=== PATIENT | female | born 1935 | race Caucasian/White ===

== ENCOUNTER 2025-04-17 19:17 | Inpatient (IN) | payer OTHER, MEDICAID ==
[~2025-04-17] VITALS: Ht 152.4 cm; Wt 58.0 kg
[2025-04-17 19:45] VITALS: RESP 25; O2SAT 95
--- NOTE | 2025-04-17 20:06 | DVH ---
CHEST RADIOGRAPH Indication: Flu Sx Technique: Single frontal view of the chest was obtained COMPARISON: None FINDINGS: Lines and Tubes: None Lungs: Clear Pleura: No effusion. No pneumothorax. Cardiomediastinal contours: Unremarkable Bones: Unremarkable IMPRESSION: 1. No acute disease.
[2025-04-17 20:12] LABS: Hematocrit 31.9 % (36.0-46.0); Hemoglobin 10.2 g/dL (12.2-16.2); Mean Corpuscular Hemoglobin 28.6 pg (28.0-32.0); Mean Corpuscular Volume 89.8 fL (80.0-100.0); Nucleated Red Blood Cells % 0.0 %
[2025-04-17 20:19] LABS: Chloride 105 mmol/L (98-107); Potassium 4.7 mmol/L (3.5-5.1); Sodium 145 mmol/L (136-145)
[2025-04-17 20:20] LABS: Anion Gap 8 (5-15); Calcium 9.4 mg/dL (8.7-10.4)
[2025-04-17 20:25] LABS: BUN/Creatinine Ratio 23.2 (10.0-20.0)
[2025-04-17 20:27] LABS: Blood Urea Nitrogen 32 mg/dL (9-23); Carbon Dioxide 32 mmol/L (20-31); Glucose 126 mg/dL (74-106)
[2025-04-17 20:30] LABS: COVID19 ANTIGEN SOFIA FIA NEGATIVE (NEGATIVE)
--- NOTE | 2025-04-17 20:36 | ED.PDOC ---
SOB-HPI HPI Comments 89-year-old female who came to ER via EMS for flu-like symptoms. Patient picked up at [facility]. Patient states she feels that she got contaminated by her roommate. She has started having productive cough and shortness of breath, progressively worsening, episodes of dizziness, lightheadedness, and has a ground level fall. Denies any head trauma or loss of consciousness. REVIEW OF SYSTEMS: General: No fever, no chills, or fatigue HEENT: No sore throat, no earache, no congestion, no neck pain. Cardiac: No chest pain. No palpitations. Lungs: (+) shortness of breath, (+) cough. GI: No nausea, no vomiting, no diarrhea, no constipation, no abdominal pain : No dysuria, frequency, or urgency. No hematuria. Musculoskeletal: No joint pain , no joint swelling, no extremity edema. Skin: No rash, no itching. Neuro: No headache, (+) dizziness, no weakness EXAM: General: Awake, alert and oriented. No acute distress. Skin: Skin in warm, dry and intact. Appropriate color for ethnicity. HEENT: The head is normocephalic and atraumatic. Conjunctivae are clear without exudates or hemorrhage. Sclera is non-icteric. EOM are intact. No signs of nystagmus. Eyelids are normal in appearance without swelling or lesions. Oral mucosa is pink and moist Neck: The neck is supple with normal range of motion. No JVD. Cardiac: Heart rate and rhythm are normal. No murmurs, gallops, or rubs are auscultated. Respiratory: No signs of respiratory distress. Lung sounds are clear in all lobes bilaterally without rales, rhonchi, or wheezes. Abdominal: Abdomen is soft, non-tender without distention. Bowel sounds are present and normoactive in all four quadrants. Extremities: Upper and lower extremities are atraumatic in appearance without deformity or edema. Neurological: The patient is awake, alert and oriented to person, place, and time with normal speech. Speech is clear. There is no facial asymmetry. Psychiatric: Appropriate mood and affect. Good judgement and insight Chief Complaint: Flu like Time Seen by MD: 20:36 Reviewed notes: Instructor Adjunct Surgical Technician Notes Information Source: Patient Mode of Arrival: EMS Past Medical History PAST MEDICAL HISTORY: COPD Surgical History: Denies all surgeries TURKISH RUBBER History: Denies all TURKISH RUBBER Hx Family History Family History: Reviewed,noncontributory to illness Social History Smoker: Cigarettes Alcohol: Denies ETOH Use Drugs: Denies Drug Use Lives In: Assisted Care Was a procedure done? Was a procedure done?: No Differential Dx Differential Diagnosis: Asthma, Bronchitis, CHF, COPD, Pneumonia, Respiratory Distress, URI X-Ray, Labs, Meds, VS Vital Signs Date Time Temp Pulse Resp B/P (MAP) Pulse Ox O2 Delivery O2 Flow Rate FiO2 04/17/25 20:47 20 95 Nasal Cannula* 3 32 04/17/25 20:00 85 16 99/75 (83) 96 04/17/25 19:45 97.9 89 15 125/68 (87) 90 97.9 04/17/25 19:45 25 95 Nasal Cannula* 2 28 04/17/25 19:22 98.0 82 20 106/66 94 98.0 Lab Test 04/17/25 20:49 04/17/25 19:54 04/17/25 19:52 Range/Units Troponin I High Sensitivity 25 28 </=34 ng/L Influenza Type A Antigen Negative Negative Influenza Type B Antigen Negative Negative SARS-CoV-2 Antigen (Rapid) Negative NEGATIVE White Blood Count 17.5 H 4.4-10.8 10^3/uL Red Blood Count 3.55 L 4.0-5.20 10^6/uL Hemoglobin 10.2 L 12.2-16.2 g/dL Hematocrit 31.9 L 36.0-46.0 % Mean Corpuscular Volume 89.8 80.0-100.0 fL Mean Corpuscular Hemoglobin 28.6 28.0-32.0 pg Mean Corpuscular Hemoglobin Concent 31.8 L 32.0-36.0 g/dL Red Cell Distribution Width 15.9 H 11.8-14.3 % Platelet Count 218 140-450 10^3/uL Mean Platelet Volume 8.1 6.9-10.8 fL Neutrophils (%) (Auto) 87.2 H 37.0-80.0 % Lymphocytes (%) (Auto) 5.7 L 10.0-50.0 % Monocytes (%) (Auto) 6.6 0.0-12.0 % Eosinophils (%) (Auto) 0.4 0.0-7.0 % Basophils (%) (Auto) 0.1 0.0-2.0 % Neutrophils # (Auto) 15.2 H 1.6-8.6 10 ^3/uL Lymphocytes # (Auto) 1.0 0.4-5.4 10 ^3/uL Monocytes # (Auto) 1.1 0-1.3 10 ^3/uL Eosinophils # (Auto) 0.1 0-0.8 10 ^3/uL Basophils # (Auto) 0 0-0.2 10 ^3/uL Nucleated Red Blood Cells 0.0 % Sodium Level 145 136-145 mmol/L Potassium Level 4.7 3.5-5.1 mmol/L Chloride Level 105 98-107 mmol/L Carbon Dioxide Level 32 H 20-31 mmol/L Anion Gap 8 5-15 Blood Urea Nitrogen 32 H 9-23 mg/dL Creatinine 1.38 H 0.550-1.02 mg/dL Glomerular Filtration Rate Calc 37 >90 mL/min BUN/Creatinine Ratio 23.2 H 10.0-20.0 Serum Glucose 126 H 74-106 mg/dL Calcium Level 9.4 8.7-10.4 mg/dL Current Medications Medications (Trade) Dose Ordered Sig/Bhumika Route Start Time Stop Time Status Last Admin Sodium Chloride 1,000 ml @ 1,000 mls/hr Q1H ONCE IV 04/17/25 20:45 04/17/25 21:44 DC 04/17/25 21:42 Albuterol (Ventolin Medneb) 2.5 mg ONCE ONCE NEB 04/17/25 20:45 04/17/25 20:46 DC 04/17/25 20:46 Ipratropium Kim (Atrovent Medneb) 0.5 mg ONCE ONCE NEB 04/17/25 20:45 04/17/25 20:46 DC 04/17/25 20:46 CHEST RADIOGRAPH Indication: Flu Sx Technique: Single frontal view of the chest was obtained COMPARISON: None FINDINGS: Lines and Tubes: None Lungs: Clear Pleura: No effusion. No pneumothorax. Cardiomediastinal contours: Unremarkable Bones: Unremarkable IMPRESSION: 1. No acute disease. Time of 1ST Reevaluation: 20:32 Reevaluation 1ST: Unchanged Patient Education/Counseling: Need For Follow Up Family Education/Counseling: No Family Present SEPSIS Sepsis Screen Date sepsis recognized/suspect: Apr 17, 2025 Time Sepsis recognized/suspect: 1914 Recent Procedure: No On Antibiotic Therapy: No Respiratory Rate >20: No Heart Rate >90: No Temp<36 C (96.8 F) or >38.3 C: No SBP <90 or MAP <65 mmHG: No New Acute Mental Status Change: No Is the patient on CPAP, BIPAP,: No Physician Orders Chest Xray 1 View (04/17/25 19:39) Titrate Oxygen (04/17/25 19:39) Oxygen (04/17/25 ) Continous Pulse Oximetry (04/17/25 19:39) Saline Lock (04/17/25 19:39) Electrical Software Engineer (04/17/25 ) Electrocardigram (04/17/25 20:16) Electrocardigram (04/17/25 21:16) Electrocardigram (04/17/25 23:16) Orthostatic Vital Signs (04/17/25 ) Vital Signs Date Time Temp Pulse Resp B/P (MAP) Pulse Ox O2 Delivery O2 Flow Rate FiO2 04/17/25 20:47 20 95 Nasal Cannula* 3 32 04/17/25 20:00 85 16 99/75 (83) 96 04/17/25 19:45 97.9 89 15 125/68 (87) 90 97.9 04/17/25 19:45 25 95 Nasal Cannula* 2 28 04/17/25 19:22 98.0 82 20 106/66 94 98.0 Laboratory Tests Test 04/17/25 19:52 White Blood Count 17.5 10^3/uL (4.4-10.8) H Medications Medications Dose Ordered Sig/Bhumika Route Start Time Stop Time Status Last Admin Dose Admin Albuterol 2.5 mg ONCE ONCE NEB 04/17/25 20:45 04/17/25 20:46 DC 04/17/25 20:46 Ipratropium Kim 0.5 mg ONCE ONCE NEB 04/17/25 20:45 04/17/25 20:46 DC 04/17/25 20:46 Sodium Chloride 1,000 ml @ 1,000 mls/hr Q1H ONCE IV 04/17/25 20:45 04/17/25 21:44 DC 04/17/25 21:42 Departure 1 Departure Time of Disposition: 00:34 Impression: Primary Impression: Syncope Disposition: ADMITTED INPATIENT Condition: Stable Comments Patient is stabilized in the ED Patient admitted to hospitalist service for further treatment, evaluation and monitoring. Critical Care Note Critical Care Time?: Yes (35 min-critical care time only) Critical care comment: Shortness of breath Stability Stability form required: No Heart Score Heart Score: Heart Score Response (Comments) Value History N/A 0 EKG N/A 0 Age N/A 0 Risk Factors N/A 0 Troponin N/A 0 Total 0 I personally scribed for MIGUEL HARDEN MD ([email or web address]) on 04/17/25 at 20:36. Electronically submitted by Henry Amaya ([email or web address]). I personally scribed for MIGUEL HARDEN MD ([email or web address]) on 04/17/25 at 21:34. Electronically submitted by Henry Amaya ([email or web address]). MIGUEL HARDEN MD Apr 17, 2025 20:36
[2025-04-17] MEDS: ALBUTEROL SULF 2.5 MG/0.5ML(0.5%) NEB SOLN NEB ONE (20:46)
[2025-04-17] MEDS: IPRATROPIUM BROM 0.5 MG/2.5ML INH SOL NEB ONE (20:46)
--- NOTE | 2025-04-17 21:25 | DVHHP2 ---
History of Present Illness HPI 89-year-old female who came to ER via EMS for flu-like symptoms. Patient picked up at [facility]. Patient states she feels that she got contaminated by her roommate. She has started having productive cough and shortness of breath, progressively worsening, episodes of dizziness, lightheadedness, and has a ground level fall. Denies any head trauma or loss of consciousness. Home Meds Active Scripts Nifedipine (Nifedipine Er) 30 Mg Tab, 60 MG PO DAILY for 30 Days, #60 TAB 6 Refills Prov:DELIO MEEHAN DO 04/20/25 Review of Systems Constitutional: Fever Pulmonary/Respiratory: Dyspnea Cardiovascular: Chest Pain Gastrointestinal: Nausea, Vomiting H&P Exam Vital Signs Vital Signs Date Time Temp Pulse Resp B/P (MAP) Pulse Ox O2 Delivery O2 Flow Rate FiO2 04/17/25 20:47 20 95 Nasal Cannula* 3 32 04/17/25 19:22 98.0 82 106/66 98.0 General Appeara: Well developed, Well nourished Head Exam: Normal inspection Neck Exam: Normal inspection Pulmonary/Respiratory: Normal inspection Cardiovascular/Chest: Normal inspection SEPSIS Sepsis Screen Date sepsis recognized/suspect: Apr 17, 2025 Time Sepsis recognized/suspect: 1914 Recent Procedure: No On Antibiotic Therapy: No Respiratory Rate >20: No Heart Rate >90: No Temp<36 C (96.8 F) or >38.3 C: No SBP <90 or MAP <65 mmHG: No New Acute Mental Status Change: No Is the patient on CPAP, BIPAP,: No Physician Orders Chest Xray 1 View (04/17/25 19:39) Titrate Oxygen (04/17/25 19:39) Oxygen (04/17/25 ) Continous Pulse Oximetry (04/17/25 19:39) Saline Lock (04/17/25 19:39) Office Clin Asst (04/17/25 ) Electrocardigram (04/17/25 20:16) Troponin-I Hs (04/17/25 23:16) Electrocardigram (04/17/25 21:16) Electrocardigram (04/17/25 23:16) Sodium Chloride 0.9% (04/17/25 20:45) Orthostatic Vital Signs (04/17/25 ) Admit (04/17/25 21:22) Code Status (04/17/25 21:22) Acetaminophen Tablet (Tylenol Tablet) (04/17/25 21:30) Hydrocodone-Acet 5/325mg Tab (Beals /32 (04/17/25 21:30) Enoxaparin Sodium (Lovenox) (04/18/25 10:00) Complete Blood Count (04/18/25 04:00) Comprehensive Metabolic Panel (04/18/25 04:00) Condition: Serious (04/17/25 21:22) Morphine Sulfate Injection (04/17/25 21:30) Lovenox 40mg (04/17/25 21:30) Nitroglycerin Sublingual (Ntrostat Subli (04/17/25 21:30) Morphine Sulfate Injection (04/17/25 21:30) Stat Ekg For Chest Pain (04/17/25 21:22) Notify Md Of Changes From Base (04/17/25 21:22) Spool Tender For 24 Hours (04/17/25 21:22) Emergency Dysrhythmia Protocol (04/17/25 21:22) Rhythm Strips Once Every Shift (04/17/25 21:22) Oxygen By Nasal Cannula (04/17/25 21:22) Vital Signs Date Time Temp Pulse Resp B/P (MAP) Pulse Ox O2 Delivery O2 Flow Rate FiO2 04/17/25 20:47 20 95 Nasal Cannula* 3 32 04/17/25 19:22 98.0 82 20 106/66 94 98.0 Laboratory Tests Test 04/17/25 19:52 White Blood Count 17.5 10^3/uL (4.4-10.8) H Medications Medications Dose Ordered Sig/Bhumika Route Start Time Stop Time Status Last Admin Dose Admin Albuterol 2.5 mg ONCE ONCE NEB 04/17/25 20:45 04/17/25 20:46 DC 04/17/25 20:46 2.5 MG Ipratropium [place] 0.5 mg ONCE ONCE NEB 04/17/25 20:45 04/17/25 20:46 DC 04/17/25 20:46 0.5 MG Labs/Xrays Labs Test 04/17/25 20:49 04/17/25 19:54 04/17/25 19:52 Range/Units Troponin I High Sensitivity 25 </=34 ng/L Influenza Type A Antigen Negative Negative Influenza Type B Antigen Negative Negative SARS-CoV-2 Antigen (Rapid) Negative NEGATIVE White Blood Count 17.5 H 4.4-10.8 10^3/uL Red Blood Count 3.55 L 4.0-5.20 10^6/uL Hemoglobin 10.2 L 12.2-16.2 g/dL Hematocrit 31.9 L 36.0-46.0 % Mean Corpuscular Volume 89.8 80.0-100.0 fL Mean Corpuscular Hemoglobin 28.6 28.0-32.0 pg Mean Corpuscular Hemoglobin Concent 31.8 L 32.0-36.0 g/dL Red Cell Distribution Width 15.9 H 11.8-14.3 % Platelet Count 218 140-450 10^3/uL Mean Platelet Volume 8.1 6.9-10.8 fL Neutrophils (%) (Auto) 87.2 H 37.0-80.0 % Lymphocytes (%) (Auto) 5.7 L 10.0-50.0 % Monocytes (%) (Auto) 6.6 0.0-12.0 % Eosinophils (%) (Auto) 0.4 0.0-7.0 % Basophils (%) (Auto) 0.1 0.0-2.0 % Neutrophils # (Auto) 15.2 H 1.6-8.6 10 ^3/uL Lymphocytes # (Auto) 1.0 0.4-5.4 10 ^3/uL Monocytes # (Auto) 1.1 0-1.3 10 ^3/uL Eosinophils # (Auto) 0.1 0-0.8 10 ^3/uL Basophils # (Auto) 0 0-0.2 10 ^3/uL Nucleated Red Blood Cells 0.0 % Sodium Level 145 136-145 mmol/L Potassium Level 4.7 3.5-5.1 mmol/L Chloride Level 105 98-107 mmol/L Carbon Dioxide Level 32 H 20-31 mmol/L Anion Gap 8 5-15 Blood Urea Nitrogen 32 H 9-23 mg/dL Creatinine 1.38 H 0.550-1.02 mg/dL Glomerular Filtration Rate Calc 37 >90 mL/min BUN/Creatinine Ratio 23.2 H 10.0-20.0 Serum Glucose 126 H 74-106 mg/dL Calcium Level 9.4 8.7-10.4 mg/dL Assessment/Plan Primary Diagnosis pneumonia, bacterial (Gram positive/Gram negative) Syncope coughing KAREL/ATN chronic anemia admitted to med/surg consult to nephro started in iv abx Plan discussed with: Patient DELIO MEEHAN DO Apr 17, 2025 21:25
[2025-04-17] MEDS ORDERED: NITROGLYCERIN 0.4 MG SL TAB SL PRN (21:30)
[2025-04-17] MEDS ORDERED: MORPHINE SULFATE INJ 2 MG/ml SYRG IV PRN ×2 (21:30)
[2025-04-17] MEDS ORDERED: ENOXAPARIN SOD 40 MG/0.4 ML SYRINGE SC SCH (21:30)
[2025-04-17] MEDS ORDERED: ACETAMINOPHEN 325 MG TAB PO PRN (21:30)
[2025-04-17] MEDS: SODIUM CHLORIDE 0.9% 1,000 ML IV ONE (21:42)
[2025-04-17] MEDS: ENOXAPARIN SOD 30 MG/0.3 ML SYRINGE SC ONE (22:29)
[2025-04-17] MEDS: AZITHROMYCIN 500MG/ 250ML 250 ML IV ONE (22:51)
[2025-04-18 04:22] LABS: Hematocrit 29.5 % (36.0-46.0); Nucleated Red Blood Cells % 0.0 %
[2025-04-18 04:23] LABS: Hemoglobin 8.9 g/dL (12.2-16.2); Mean Corpuscular Hemoglobin 28.9 pg (28.0-32.0); Mean Corpuscular Volume 95.9 fL (80.0-100.0)
[2025-04-18 04:31] LABS: Urine Protein, UAD Negative (Negative)
[2025-04-18 04:41] LABS: Alanine Aminotransferase 16 U/L (7-40); Albumin 3.6 g/dL (3.2-4.8); Alkaline Phosphatase 72 U/L (46-116); Anion Gap 10 (5-15); BUN/Creatinine Ratio 16.2 (10.0-20.0); Blood Urea Nitrogen 18 mg/dL (9-23); Carbon Dioxide 26 mmol/L (20-31); Glucose 100 mg/dL (74-106); Potassium 4.2 mmol/L (3.5-5.1); Sodium 143 mmol/L (136-145); Total Protein 6.4 g/dL (5.7-8.2)
[2025-04-18 04:45] LABS: Bilirubin, Total 0.2 mg/dL (0.2-1.0); Calcium 8.6 mg/dL (8.7-10.4); Chloride 107 mmol/L (98-107)
[2025-04-18 09:00] VITALS: BP 152/62; PULSE 80; RESP 18; TEMP 97.5; O2SAT 99
[2025-04-18] MEDS: ENOXAPARIN SOD 30 MG/0.3 ML SYRINGE SC SCH (10:21)
[2025-04-18 13:20] VITALS: PULSE 86; RESP 18; O2SAT 99
[2025-04-18 13:30] VITALS: BP 153/81; PULSE 86; RESP 18; TEMP 98.2; O2SAT 99
[2025-04-18 17:01] VITALS: BP 152/81; PULSE 81; RESP 20; TEMP 98.1; O2SAT 98
--- NOTE | 2025-04-18 17:06 | DVHINCON2 ---
Date of service: Apr 18, 2025 Referring Physician Tho Massey MD Reason for Consultation Acute kidney injury History of Present Illness Chichi Barahona is a 89 year old F with a Past Medical History pertinent for COPD who presented to the hospital from [facility] with complaint of flu-like symptoms. Patient states she believes that she got contaminated by her roommate. She started having productive cough and shortness of breath, progressively worsening, episodes of dizziness, lightheadedness, and has a ground level fall. Denies any head trauma or loss of consciousness. Denies any chest pain, fever, chills, N/V/D or abdominal pain. During ED course, Chest x-ray reported no acute disease. Labs were remarkable for WBC 17.5. Hgb 10.2. Creatinine 1.38 with BUN of 32. eGFR 37. K wnl. Currently stable on 1L NC. Patient is admitted under the care of Dr. Massey. I was asked to consult for management of KAREL. Allergies: Coded Allergies: Sulfamethoxazole w/Trimethoprim (Verified Allergy, Unknown, 04/17/25) Current Medications Current Medications Medications (Trade) Dose Ordered Sig/Bhumika Route PRN Reason Start Time Stop Time Status Last Admin Acetaminophen (Tylenol Tablet) 325 mg Q4HP PRN PO MILD PAIN (1-3 PAIN SCALE) 04/17/25 21:30 Acetaminophen/ Hydrocodone Bitart ([place] 5/325MG Tab) 1 tab Q4HP PRN PO MODERATE PAIN (4-6 PAIN SCALE) 04/17/25 21:30 Enoxaparin Sodium (Lovenox) 30 mg DAILY SC 04/18/25 10:00 04/18/25 10:21 Morphine Sulfate 2 mg Q4HPRN PRN IV SEVERE PAIN (7-10 PAIN SCALE) 04/17/25 21:30 Enoxaparin Sodium (Lovenox) 40 mg DAILY SC 04/17/25 21:30 04/17/25 21:56 DC Nitroglycerin (Ntrostat Sublingual) 0.4 mg Q5MINP PRN SL FOR CHEST PAIN 04/17/25 21:30 Morphine Sulfate 2 mg Q30M PRN IV FOR CHEST PAIN 04/17/25 21:30 Family History: Patient reports no known family medical history. Review of Systems REVIEW OF SYSTEMS: General: No fever, no chills, or fatigue HEENT: No sore throat, no earache, no congestion, no neck pain. Cardiac: No chest pain. No palpitations. Lungs: (+) shortness of breath, (+) cough. GI: No nausea, no vomiting, no diarrhea, no constipation, no abdominal pain : No dysuria, frequency, or urgency. No hematuria. Musculoskeletal: No joint pain , no joint swelling, no extremity edema. Skin: No rash, no itching. Neuro: No headache, (+) dizziness, no weakness H&P Exam Vital Signs/I&O Vital Sign Date Time Temp Pulse Resp B/P (MAP) Pulse Ox O2 Delivery O2 Flow Rate FiO2 04/18/25 17:01 98.1 81 20 152/81 (104) 98 98.1 04/18/25 13:20 Nasal Cannula* 1 24 Physical Exam Vitals and nursing notes reviewed General Appearance: In no acute distress. HEENT: NC/AT. Conjunctivae are clear without exudates or hemorrhage. Sclera is non-icteric. EOM are intact. Mucous membr. moist/pink. Neck: The neck is supple with normal range of motion. No JVD. Respiratory: Clear to auscultation, Normal air movement Cardiovascular: Normal S1, Normal S2, No murmurs Abdominal: Normal bowel sounds, Soft, No tenderness, No hepatospenomegaly Extremities: No clubbing, No cyanosis Skin: No rashes, No breakdown Neuro: A&Ox4. No focal deficits. Labs/Diagnostic Data Labs/Diagnostic Data Laboratory Tests Test 04/18/25 04:09 04/17/25 23:59 04/17/25 22:46 04/17/25 20:49 Range/Units White Blood Count 12.8 #H 4.4-10.8 10^3/uL Red Blood Count 3.08 L 4.0-5.20 10^6/uL Hemoglobin 8.9 L 12.2-16.2 g/dL Hematocrit 29.5 L 36.0-46.0 % Mean Corpuscular Volume 95.9 # 80.0-100.0 fL Mean Corpuscular Hemoglobin 28.9 28.0-32.0 pg Mean Corpuscular Hemoglobin Concent 30.1 L 32.0-36.0 g/dL Red Cell Distribution Width 16.5 H 11.8-14.3 % Platelet Count 125 L 140-450 10^3/uL Mean Platelet Volume 8.4 6.9-10.8 fL Neutrophils (%) (Auto) 87.3 H 37.0-80.0 % Lymphocytes (%) (Auto) 7.0 L 10.0-50.0 % Monocytes (%) (Auto) 4.8 0.0-12.0 % Eosinophils (%) (Auto) 0.7 0.0-7.0 % Basophils (%) (Auto) 0.2 0.0-2.0 % Neutrophils # (Auto) 11.2 H 1.6-8.6 10 ^3/uL Lymphocytes # (Auto) 0.9 0.4-5.4 10 ^3/uL Monocytes # (Auto) 0.6 0-1.3 10 ^3/uL Eosinophils # (Auto) 0.1 0-0.8 10 ^3/uL Basophils # (Auto) 0 0-0.2 10 ^3/uL Nucleated Red Blood Cells 0.0 % Sodium Level 143 136-145 mmol/L Potassium Level 4.2 3.5-5.1 mmol/L Chloride Level 107 98-107 mmol/L Carbon Dioxide Level 26 20-31 mmol/L Anion Gap 10 5-15 Blood Urea Nitrogen 18 # 9-23 mg/dL Creatinine 1.11 H 0.550-1.02 mg/dL Glomerular Filtration Rate Calc 48 >90 mL/min BUN/Creatinine Ratio 16.2 10.0-20.0 Serum Glucose 100 74-106 mg/dL Calcium Level 8.6 L 8.7-10.4 mg/dL Total Bilirubin 0.2 0.2-1.0 mg/dL Aspartate Amino Transferase (AST) 21 13-40 U/L Alanine Aminotransferase (ALT) 16 7-40 U/L Alkaline Phosphatase 72 46-116 U/L Total Protein 6.4 5.7-8.2 g/dL Albumin 3.6 3.2-4.8 g/dL Urine Color Light-yellow Yellow Urine Clarity Turbid H Clear Urine pH 6.0 5.0-9.0 Urine Specific Tiff 1.015 1.001-1.035 Urine Protein Negative Negative Urine Ketones Negative Negative Urine Blood Trace H Negative /uL Urine Nitrite Negative Negative Urine Bilirubin Negative Negative Urine Urobilinogen Normal Negative mg/dL Urine Leukocyte Esterase 3+ Negative /uL Urine RBC 4 0 - 4 /hpf Urine Microscopic WBC 12 H 0-5 /HPF Urine Squamous Epithelial Cells Mod <5 /hpf Urine Bacteria None seen None Seen /hpf Urine Glucose Normal Normal mg/dL Troponin I High Sensitivity 22 25 </=34 ng/L Test 04/17/25 19:54 04/17/25 19:52 Range/Units Influenza Type A Antigen Negative Negative Influenza Type B Antigen Negative Negative SARS-CoV-2 Antigen (Rapid) Negative NEGATIVE White Blood Count 17.5 H 4.4-10.8 10^3/uL Red Blood Count 3.55 L 4.0-5.20 10^6/uL Hemoglobin 10.2 L 12.2-16.2 g/dL Hematocrit 31.9 L 36.0-46.0 % Mean Corpuscular Volume 89.8 80.0-100.0 fL Mean Corpuscular Hemoglobin 28.6 28.0-32.0 pg Mean Corpuscular Hemoglobin Concent 31.8 L 32.0-36.0 g/dL Red Cell Distribution Width 15.9 H 11.8-14.3 % Platelet Count 218 140-450 10^3/uL Mean Platelet Volume 8.1 6.9-10.8 fL Neutrophils (%) (Auto) 87.2 H 37.0-80.0 % Lymphocytes (%) (Auto) 5.7 L 10.0-50.0 % Monocytes (%) (Auto) 6.6 0.0-12.0 % Eosinophils (%) (Auto) 0.4 0.0-7.0 % Basophils (%) (Auto) 0.1 0.0-2.0 % Neutrophils # (Auto) 15.2 H 1.6-8.6 10 ^3/uL Lymphocytes # (Auto) 1.0 0.4-5.4 10 ^3/uL Monocytes # (Auto) 1.1 0-1.3 10 ^3/uL Eosinophils # (Auto) 0.1 0-0.8 10 ^3/uL Basophils # (Auto) 0 0-0.2 10 ^3/uL Nucleated Red Blood Cells 0.0 % Sodium Level 145 136-145 mmol/L Potassium Level 4.7 3.5-5.1 mmol/L Chloride Level 105 98-107 mmol/L Carbon Dioxide Level 32 H 20-31 mmol/L Anion Gap 8 5-15 Blood Urea Nitrogen 32 H 9-23 mg/dL Creatinine 1.38 H 0.550-1.02 mg/dL Glomerular Filtration Rate Calc 37 >90 mL/min BUN/Creatinine Ratio 23.2 H 10.0-20.0 Serum Glucose 126 H 74-106 mg/dL Calcium Level 9.4 8.7-10.4 mg/dL Troponin I High Sensitivity 28 </=34 ng/L Assessment Acute kidney injury Suspected pneumonia Hypoxia Plan/Recommendation Agreement with your ongoing assessment and plan of care. Daily lab monitoring to include renal function and electrolytes. Electrolyte replacement prn. IVFs stopped. Monitor I/O. Pain management prn. DVT prophylaxis: Enoxaparin 30 mg SC daily. Tylenol q4h prn. Additional plan as per the hospital course. Plan discussed with: Patient, Other (RN) SOFI BRIONES DO Apr 18, 2025 17:06
[2025-04-18 20:00] VITALS: PULSE 77; RESP 17; O2SAT 95
[2025-04-18 21:00] VITALS: BP 146/69; PULSE 87; RESP 18; TEMP 98.4; O2SAT 99
[2025-04-19] VITALS (14 sets, daily range): BP systolic 111–187; BP diastolic 65–85; PULSE 77–107; RESP 18–20; TEMP 97.7–98.7; O2SAT 18–100
--- NOTE | 2025-04-19 08:27 | DVHPN2 ---
Progress Note Date Seen: Apr 19, 2025 Medical Necessity Reason Pt with a Central, PICC or Fol: No Subjective Patient reports: No new complaints Review of Systems: HEENT:Normal Objective vital signs Vital Sign Date Time Temp Pulse Resp B/P (MAP) Pulse Ox O2 Delivery O2 Flow Rate FiO2 04/19/25 05:00 98.0 82 18 155/70 (98) 100 98.0 04/18/25 20:00 Nasal Cannula* 2 28 Total Intake and Output 04/18/25 04/18/25 04/19/25 15:00 23:00 07:00 Intake Total 200 ml 550 ml Output Total 150 ml Balance 50 ml 550 ml medications Current Medications Medications Dose Ordered Sig/Bhumika Route Start Time Stop Time Status Last Admin Dose Admin Acetaminophen 325 mg Q4HP PRN PO 04/17/25 21:30 Acetaminophen/ Hydrocodone Bitart 1 tab Q4HP PRN PO 04/17/25 21:30 Enoxaparin Sodium 30 mg DAILY SC 04/18/25 10:00 04/18/25 10:21 30 MG Morphine Sulfate 2 mg Q4HPRN PRN IV 04/17/25 21:30 Nitroglycerin 0.4 mg Q5MINP PRN SL 04/17/25 21:30 Morphine Sulfate 2 mg Q30M PRN IV 04/17/25 21:30 Albuterol 2.5 mg Q4HPRN PRN NEB 04/19/25 08:15 Ipratropium [place] 0.5 mg Q4HPRN PRN NEB 04/19/25 08:15 Hydralazine HCl 10 mg Q6HP PRN IV 04/19/25 08:15 Examination: GENERAL:Normal, HEENT:Normal, NECK:Normal, LUNGS:Normal, CVS:Normal, ABDOMEN:Normal laboratory and microbiology Laboratory Tests 04/18/25 04:09 Test 04/18/25 04:09 Range/Units Serum Glucose 100 74-106 mg/dL Microbiology Date/Time Source Procedure Growth Status 04/17/25 21:40 Blood Blood Culture - Preliminary NO GROWTH AFTER 24 HOURS OF INCUBATION. Resulted Labs and/or images reviewed: Labs reviewed by me, Image(s) reviewed by me Problem List/Assessment/Plan Problem List/Assessment/Plan pneumonia, bacterial (Gram positive/Gram negative) Syncope coughing KAREL/ATN chronic anemia sepsis with PNA admitted to med/surg consult to nephro started in iv abx leukocytosis improving continue with iv abx Plan discussed with: Patient My Orders My Orders Orders - DELIO MEEHAN DO Procedure Category Date Status Time *Dr. Puneet Cormier CONS 04/18/25 Transmitted 11:44 Soft Diet DIET 04/18/25 Transmitted Dinner DELIO MEEHAN DO Apr 19, 2025 08:27
--- NOTE | 2025-04-19 08:27 | DVHPN2 ---
Progress Note Date Seen: Apr 18, 2025 Medical Necessity Reason Pt with a Central, PICC or Fol: No Objective vital signs Vital Sign Date Time Temp Pulse Resp B/P (MAP) Pulse Ox O2 Delivery O2 Flow Rate FiO2 04/19/25 05:00 98.0 82 18 155/70 (98) 100 98.0 04/18/25 20:00 Nasal Cannula* 2 28 Total Intake and Output 04/18/25 04/18/25 04/19/25 15:00 23:00 07:00 Intake Total 200 ml 550 ml Output Total 150 ml Balance 50 ml 550 ml medications Current Medications Medications Dose Ordered Sig/Bhumika Route Start Time Stop Time Status Last Admin Dose Admin Acetaminophen 325 mg Q4HP PRN PO 04/17/25 21:30 Acetaminophen/ Hydrocodone Bitart 1 tab Q4HP PRN PO 04/17/25 21:30 Enoxaparin Sodium 30 mg DAILY SC 04/18/25 10:00 04/18/25 10:21 30 MG Morphine Sulfate 2 mg Q4HPRN PRN IV 04/17/25 21:30 Nitroglycerin 0.4 mg Q5MINP PRN SL 04/17/25 21:30 Morphine Sulfate 2 mg Q30M PRN IV 04/17/25 21:30 Albuterol 2.5 mg Q4HPRN PRN NEB 04/19/25 08:15 Ipratropium [place] 0.5 mg Q4HPRN PRN NEB 04/19/25 08:15 Hydralazine HCl 10 mg Q6HP PRN IV 04/19/25 08:15 laboratory and microbiology Laboratory Tests 04/18/25 04:09 Test 04/18/25 04:09 Range/Units Serum Glucose 100 74-106 mg/dL Microbiology Date/Time Source Procedure Growth Status 04/17/25 21:40 Blood Blood Culture - Preliminary NO GROWTH AFTER 24 HOURS OF INCUBATION. Resulted Labs and/or images reviewed: Labs reviewed by me, Image(s) reviewed by me Problem List/Assessment/Plan Problem List/Assessment/Plan pneumonia, bacterial (Gram positive/Gram negative) Syncope coughing KAREL/ATN chronic anemia sepsis with PNA admitted to med/surg consult to nephro started in iv abx leukocytosis improving Plan discussed with: Patient My Orders My Orders Orders - DELIO MEEHAN DO Procedure Category Date Status Time *Dr. Puneet Cormier CONS 04/18/25 Transmitted 11:44 Soft Diet DIET 04/18/25 Transmitted Dinner DELIO MEEHAN DO Apr 19, 2025 08:27
[2025-04-19] MEDS: hydrALAZINE HCL 20 MG/ML VL IV PRN (08:53)
[2025-04-19] MEDS: HYDROcodone-ACET 5/325MG TAB PO PRN (08:53)
[2025-04-19] MEDS: IPRATROPIUM BROM 0.5 MG/2.5ML INH SOL NEB PRN (09:09)
[2025-04-19] MEDS: ALBUTEROL SULF 2.5 MG/0.5ML(0.5%) NEB SOLN NEB PRN (09:09)
--- NOTE | 2025-04-19 09:56 | DVH ---
CHEST RADIOGRAPH Indication: Trouble breathing. Technique: Single frontal view of the chest was obtained Comparison: XY CHEST XRAY 1 VIEW on DOS: 04/17/25 FINDINGS: Lines and Tubes: None Lungs: There is a hazy left upper lobe opacity. The right lung is clear. Pleura: No effusion. No pneumothorax. Cardiomediastinal contours: Unremarkable Bones: No acute osseous abnormality. IMPRESSION: 1. Hazy left upper lobe opacity which may represent developing pneumonia.
--- NOTE | 2025-04-19 09:59 | ECG ---
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
[2025-04-19 11:20] LABS: Hematocrit 33.5 % (36.0-46.0); Hemoglobin 10.7 g/dL (12.2-16.2); Mean Corpuscular Hemoglobin 28.6 pg (28.0-32.0); Mean Corpuscular Volume 89.7 fL (80.0-100.0); Nucleated Red Blood Cells % 0.0 %
[2025-04-19] MEDS: ALPRAZolam 0.5 MG TAB PO PRN (14:08)
--- NOTE | 2025-04-19 19:21 | DVHPN2 ---
Progress Note - Dictate Date Seen: Apr 19, 2025 Has the PT tested + for MRSA If YES, has PT been informed?: No Medical Necessity Reason Pt with a Central, PICC or Fol: No Subjective Patient was seen and evaluated in follow up. No acute events overnight. Patient is complaining of shortness of breath, currently on 4L NC. Reports history of anxiety attacks. Follow up Chest x-ray showed hazy left upper lobe opacity which may represent developing pneumonia. vital signs Vital Sign Date Time Temp Pulse Resp B/P (MAP) Pulse Ox O2 Delivery O2 Flow Rate FiO2 04/19/25 17:00 97.7 91 18 138/74 (95) 99 97.7 04/19/25 10:30 Nasal Cannula 4.0 04/19/25 10:30 36 Total Intake and Output 04/18/25 04/18/25 04/19/25 15:00 23:00 07:00 Intake Total 200 ml 550 ml Output Total 150 ml Balance 50 ml 550 ml medications Current Medications Medications Dose Ordered Sig/Bhumika Route Start Time Stop Time Status Last Admin Dose Admin Acetaminophen 325 mg Q4HP PRN PO 04/17/25 21:30 Acetaminophen/ Hydrocodone Bitart 1 tab Q4HP PRN PO 04/17/25 21:30 04/19/25 08:53 1 TAB Enoxaparin Sodium 30 mg DAILY SC 04/18/25 10:00 04/19/25 08:52 30 MG Morphine Sulfate 2 mg Q4HPRN PRN IV 04/17/25 21:30 Nitroglycerin 0.4 mg Q5MINP PRN SL 04/17/25 21:30 Morphine Sulfate 2 mg Q30M PRN IV 04/17/25 21:30 Albuterol 2.5 mg Q4HPRN PRN NEB 04/19/25 08:15 04/19/25 09:09 2.5 MG Ipratropium [place] 0.5 mg Q4HPRN PRN NEB 04/19/25 08:15 04/19/25 09:09 0.5 MG Hydralazine HCl 10 mg Q6HP PRN IV 04/19/25 08:15 04/19/25 08:53 10 MG Nifedipine 60 mg DAILY PO 04/19/25 10:00 04/19/25 14:08 60 MG Alprazolam 2 mg BID PRN PO 04/19/25 12:00 04/19/25 14:08 2 MG Enteral Nutritional Formula 240 ml TIDWM PO 04/19/25 18:00 objective Vitals and nursing notes reviewed General Appearance: In no acute distress. HEENT: NC/AT. Conjunctivae are clear without exudates or hemorrhage. Sclera is non-icteric. EOM are intact. Mucous membr. moist/pink. Neck: The neck is supple with normal range of motion. No JVD. Respiratory: Clear to auscultation, Normal air movement Cardiovascular: Normal S1, Normal S2, No murmurs Abdominal: Normal bowel sounds, Soft, No tenderness, No hepatospenomegaly Extremities: No clubbing, No cyanosis Skin: No rashes, No breakdown Neuro: A&Ox4. No focal deficits. laboratory and microbiology Laboratory Tests 04/19/25 09:49 04/18/25 04:09 Test 04/18/25 04:09 Range/Units Serum Glucose 100 74-106 mg/dL Problem List Acute kidney injury Suspected pneumonia Hypoxia Assessment/Plan Agree with current supportive medical care. On 4L NC. RT support prn. F/u labs. Electrolyte replacement prn. Monitor I/O. Optimization of BP with IV Hydralazine. DVT prophylaxis: Enoxaparin 30 mg SC daily. Tylenol q4h prn. Additional plan as per the hospital course. Plan discussed with: Patient, Other (RN) SOFI BRIONES DO Apr 19, 2025 19:20
[2025-04-20] VITALS (12 sets, daily range): BP systolic 121–147; BP diastolic 63–95; PULSE 64–96; RESP 14–22; TEMP 37.3; O2SAT 96–100
[2025-04-20] MEDS: Ensure HIGH Protein Chocolate 8oz Bottle PO SCH (07:24)
[2025-04-20] MEDS ORDERED: NIFE1TAB31 PO (15:36)
--- NOTE | 2025-04-20 15:37 | DVHDS2 ---
Discharge Summary Date of Admission Apr 17, 2025 at 21:22 Date of Discharge: Apr 20, 2025 Labs/Diagnostic Data: Laboratory Results Test 04/19/25 12:50 04/19/25 09:49 04/18/25 04:09 04/17/25 23:59 Troponin I High Sensitivity 17 ng/L (</=34) White Blood Count 11.3 10^3/uL (4.4-10.8) Red Blood Count 3.73 10^6/uL (4.0-5.20) Hemoglobin 10.7 g/dL (12.2-16.2) Hematocrit 33.5 % (36.0-46.0) Mean Corpuscular Volume 89.7 fL (80.0-100.0) Mean Corpuscular Hemoglobin 28.6 pg (28.0-32.0) Mean Corpuscular Hemoglobin Concent 31.9 g/dL (32.0-36.0) Red Cell Distribution Width 15.6 % (11.8-14.3) Platelet Count 212 10^3/uL (140-450) Mean Platelet Volume 8.5 fL (6.9-10.8) Neutrophils (%) (Auto) 90.6 % (37.0-80.0) Lymphocytes (%) (Auto) 5.4 % (10.0-50.0) Monocytes (%) (Auto) 3.3 % (0.0-12.0) Eosinophils (%) (Auto) 0.5 % (0.0-7.0) Basophils (%) (Auto) 0.2 % (0.0-2.0) Neutrophils # (Auto) 10.3 10 ^3/uL (1.6-8.6) Lymphocytes # (Auto) 0.6 10 ^3/uL (0.4-5.4) Monocytes # (Auto) 0.4 10 ^3/uL (0-1.3) Eosinophils # (Auto) 0.1 10 ^3/uL (0-0.8) Basophils # (Auto) 0 10 ^3/uL (0-0.2) Nucleated Red Blood Cells 0.0 % B-Type Natriuretic Peptide 230.38 pg/mL (0-100) Sodium Level 143 mmol/L (136-145) Potassium Level 4.2 mmol/L (3.5-5.1) Chloride Level 107 mmol/L (98-107) Carbon Dioxide Level 26 mmol/L (20-31) Anion Gap 10 (5-15) Blood Urea Nitrogen 18 mg/dL (9-23) Creatinine 1.11 mg/dL (0.550-1.02) Glomerular Filtration Rate Calc 48 mL/min (>90) BUN/Creatinine Ratio 16.2 (10.0-20.0) Serum Glucose 100 mg/dL (74-106) Calcium Level 8.6 mg/dL (8.7-10.4) Total Bilirubin 0.2 mg/dL (0.2-1.0) Aspartate Amino Transferase (AST) 21 U/L (13-40) Alanine Aminotransferase (ALT) 16 U/L (7-40) Alkaline Phosphatase 72 U/L (46-116) Total Protein 6.4 g/dL (5.7-8.2) Albumin 3.6 g/dL (3.2-4.8) Urine Color Light-yellow (Yellow) Urine Clarity Turbid (Clear) Urine pH 6.0 (5.0-9.0) Urine Specific [place] 1.015 (1.001-1.035) Urine Protein Negative (Negative) Urine Ketones Negative (Negative) Urine Blood Trace /uL (Negative) Urine Nitrite Negative (Negative) Urine Bilirubin Negative (Negative) Urine Urobilinogen Normal mg/dL (Negative) Urine Leukocyte Esterase 3+ /uL (Negative) Urine RBC 4 /hpf (0 - 4) Urine Microscopic WBC 12 /HPF (0-5) Urine Squamous Epithelial Cells Mod /hpf (<5) Urine Bacteria None seen /hpf (None Seen) Urine Glucose Normal mg/dL (Normal) Test 04/17/25 19:54 Influenza Type A Antigen Negative (Negative) Influenza Type B Antigen Negative (Negative) SARS-CoV-2 Antigen (Rapid) Negative (NEGATIVE) Other Laboratory Tests 04/19/25 09:49 04/18/25 04:09 Brief Hx & Hospital Course: pneumonia, bacterial (Gram positive/Gram negative) Syncope coughing KAREL/ATN chronic anemia sepsis with PNA admitted to med/surg consult to nephro started in iv abx leukocytosis improving continue with iv abx improving further, possible d/c in 24 hours discharged back to [facility] Condition at Discharge: Fair Final Diagnosis/Problems List see above Discharge Disposition: Assisted Living Facility Discharge Instruct/Medications Diet: Cardiac 2g Na,low cholest Activity: No Restrictions, As Tolerated Scheduled Nifedipine (Nifedipine Er), 60 MG PO DAILY Discharge Statement: "Patient was advised to return to the ER or call 911 if any headaches, dizziness, shortness of breath, chest pain, abdominal pain, bleeding, fevers, or worsening of medical condition. Patient was counseled about treatment plan, medications, possible side effects, patientverbalized understanding. All questions were answered to the best of my ability. This discharge took greater then 30 minutes in planning, reviewing documentation, counseling the patient, and discussing with other team members." ASSESSMENT ASSESSMENT Assessment DELIO MEEHAN DO Apr 20, 2025 15:37
--- NOTE | 2025-04-20 15:42 | DVHPN2 ---
Progress Note Date Seen: Apr 20, 2025 Has the PT tested + for MRSA If YES, has PT been informed?: No Medical Necessity Reason Pt with a Central, PICC or Fol: No Subjective Patient reports: No new complaints Objective vital signs Vital Sign Date Time Temp Pulse Resp B/P (MAP) Pulse Ox O2 Delivery O2 Flow Rate FiO2 04/20/25 14:32 92 14 100 04/20/25 13:00 99.2 146/63 (90) 99.2 04/20/25 10:00 Nasal Cannula 3.0 04/20/25 10:00 32 Total Intake and Output 04/19/25 04/19/25 04/20/25 15:00 23:00 07:00 Intake Total 300 ml 0 ml Balance 300 ml 0 ml medications Current Medications Medications Dose Ordered Sig/Bhumika Route Start Time Stop Time Status Last Admin Dose Admin Acetaminophen 325 mg Q4HP PRN PO 04/17/25 21:30 Acetaminophen/ Hydrocodone Bitart 1 tab Q4HP PRN PO 04/17/25 21:30 04/19/25 08:53 1 TAB Enoxaparin Sodium 30 mg DAILY SC 04/18/25 10:00 04/20/25 10:07 30 MG Morphine Sulfate 2 mg Q4HPRN PRN IV 04/17/25 21:30 Nitroglycerin 0.4 mg Q5MINP PRN SL 04/17/25 21:30 Morphine Sulfate 2 mg Q30M PRN IV 04/17/25 21:30 Albuterol 2.5 mg Q4HPRN PRN NEB 04/19/25 08:15 04/20/25 14:23 2.5 MG Ipratropium [place] 0.5 mg Q4HPRN PRN NEB 04/19/25 08:15 04/20/25 14:23 0.5 MG Hydralazine HCl 10 mg Q6HP PRN IV 04/19/25 08:15 04/19/25 08:53 10 MG Nifedipine 60 mg DAILY PO 04/19/25 10:00 04/20/25 10:07 60 MG Alprazolam 2 mg BID PRN PO 04/19/25 12:00 04/19/25 22:35 2 MG Enteral Nutritional Formula 240 ml TIDWM PO 04/19/25 18:00 04/20/25 12:05 240 ML laboratory and microbiology Laboratory Tests 04/19/25 09:49 04/18/25 04:09 Test 04/18/25 04:09 Range/Units Serum Glucose 100 74-106 mg/dL Microbiology Date/Time Source Procedure Growth Status 04/17/25 21:40 Blood Blood Culture - Preliminary NO GROWTH AFTER 48 HOURS OF INCUBATION. Resulted Labs and/or images reviewed: Labs reviewed by me, Image(s) reviewed by me Problem List/Assessment/Plan Problem List/Assessment/Plan pneumonia, bacterial (Gram positive/Gram negative) Syncope coughing KAREL/ATN chronic anemia sepsis with PNA admitted to med/surg consult to nephro started in iv abx leukocytosis improving continue with iv abx improving further, possible d/c in 24 hours Plan discussed with: Patient My Orders My Orders Orders - DELIO MEEHAN DO Procedure Category Date Status Time Nutritional NOURISH 04/19/25 Transmitted Supplements 17:30 Nutritional PHA 04/19/25 In Process Supplements (Ensure 18:00 Discharge DISCHARGE 04/20/25 Transmitted 15:34 Dietary Evaluation Review Comments: Nutrition Recommendation 1) Consider Ensure enlive 240ml TID 2) Monitor PO intake, lab values, weight trend, and I/O Expected Outcomes/Goals: Intake to meet >75% estimated needs Lab values to improve Fu 3-5 days DELIO MEEHAN DO Apr 20, 2025 15:42
--- NOTE | 2025-04-20 20:29 | DVHPN2 ---
Progress Note - Dictate Date Seen: Apr 20, 2025 Has the PT tested + for MRSA If YES, has PT been informed?: No Medical Necessity Reason Pt with a Central, PICC or Fol: No Subjective Patient was seen and evaluated in follow up. No acute events overnight. Patient has remained stable 3L NC. No new complaints. vital signs Vital Sign Date Time Temp Pulse Resp B/P (MAP) Pulse Ox O2 Delivery O2 Flow Rate FiO2 04/20/25 17:37 37.3 04/20/25 14:32 92 14 100 04/20/25 13:00 146/63 (90) 04/20/25 10:00 Nasal Cannula 3.0 04/20/25 10:00 32 Total Intake and Output 04/19/25 04/19/25 04/20/25 15:00 23:00 07:00 Intake Total 300 ml 0 ml Balance 300 ml 0 ml objective Vitals and nursing notes reviewed General Appearance: In no acute distress. HEENT: NC/AT. Conjunctivae are clear without exudates or hemorrhage. Sclera is non-icteric. EOM are intact. Mucous membr. moist/pink. Neck: The neck is supple with normal range of motion. No JVD. Respiratory: Clear to auscultation, Normal air movement Cardiovascular: Normal S1, Normal S2, No murmurs Abdominal: Normal bowel sounds, Soft, No tenderness, No hepatospenomegaly Extremities: No clubbing, No cyanosis Skin: No rashes, No breakdown Neuro: A&Ox4. No focal deficits. laboratory and microbiology Laboratory Tests 04/19/25 09:49 04/18/25 04:09 Test 04/18/25 04:09 Range/Units Serum Glucose 100 74-106 mg/dL Problem List Acute kidney injury Suspected pneumonia Hypoxia Assessment/Plan DC planning in progress. Transferring back to assisted living facility. Cleared for discharge from Nephrology standpoint. Dietary Evaluation Review Comments: Nutrition Recommendation 1) Consider Ensure enlive 240ml TID 2) Monitor PO intake, lab values, weight trend, and I/O Expected Outcomes/Goals: Intake to meet >75% estimated needs Lab values to improve Fu 3-5 days Plan discussed with: Patient, Other (RN) SOFI BRIONES DO Apr 20, 2025 20:29
== END 2025-04-20 18:45 | disposition home or self-care (01) | DRG 871 ==
LOC: ER 19:17 → EDBD 19:17 → OVERFLOW 21:22 → EAST 04-18 12:55
PROVIDERS: ADMIT Internal Medicine; ATTEND Internal Medicine
DX: A41.59 Other Gram-negative sepsis (principal); J15.69 Pneumonia due to other Gram-negative bacteria; J15.9 Unspecified bacterial pneumonia; N17.0 Acute kidney failure with tubular necrosis; R09.02 Hypoxemia; J44.9 Chronic obstructive pulmonary disease, unspecified; F17.210 Nicotine dependence, cigarettes, uncomplicated; Z88.2 Allergy status to sulfonamides; Z79.899 Other long term (current) drug therapy
CPT/HCPCS: 36415; 71045; 80048; 80053; 81001; 83880; 84484; 85025; 87040; 87426; 87804; 93005; 94640; 99291; G0378

== ENCOUNTER 2025-05-02 19:56 | Emergency (ER) | payer OTHER, MEDICAID ==
[~2025-05-02] VITALS: Ht 162.6 cm; Wt 59.0 kg
[~2025-05-02 19:56] MED LIST: NIFE1TAB31 PO
--- NOTE | 2025-05-02 20:21 | ED.PDOC ---
SOB-HPI HPI Comments HPI: 89-year-old female who came to ER via EMS for shortness of breath. Patient was picked up at [facility]. Has history of COPD on oxygen at 3lpm and has been having cough and shortness of breath for the past 2 days that worsened today. Was saturating at 86% on room air and 94% at 3-4 lpm. Recently treated for pneumonia 2 weeks ago. Patient was given breathing treatments by paramedics. patient is in no acute distress on arrival. Past Medical History: COPD oxygen dependent, chronic kidney failure, hypertension Surgical History: Denies Family History: Denies Personal and Social History: resides at [facility] facility HPI: Poor Historian. REVIEW OF SYSTEMS: CONSTITUTIONAL: Denies acute: fever, diaphoresis, chills, generalized weakness. HEAD: Denies acute: headache, photophobia Eyes: Denies acute: Double vision, vision loss, eye pain, eye discharge. EARS: Denies acute: tinnitus, hearing loss, ear discharge, ear pain, THROAT: Denies acute: sore throat, swelling, difficulty swallowing , pain with swallowing, change in voice. NECK: Denies acute: neck pain, neck swelling, stiff neck. HEART: Denies acute : chest pain, palpitations, LUNGS: Denies acute: wheezing, hemoptysis ABDOMEN: Denies acute: abdominal pain, Nausea, Vomiting, diarrhea, melena , hematemesis, hematochezia SKIN: Denies acute: rash, redness, lesions, itchiness. EXTREMITIES: Denies acute: calf pain, numbness, tingling, weakness, denies pain in extremity. Denies acute: Low back pain. Neuro: Denies acute: focal neurological deficit, motor or sensory focal neurological deficit, tremors, seizure like activity, confusion, dizziness, change in mental status, loss of bowel or bladder function, cauda equina like symptoms. : Denies acute: dysuria, hematuria, flank pain, increase in urinary frequency. PSYCH: Denies acute: hallucination, suicidal ideation, homicidal ideation. FEMALE: Denies acute: abnormal vaginal bleeding, foul odor, unusual discharge. PHYSICAL EXAM: General: --no------acute distress, awake and alert. Head: normocephalic, atraumatic. No raccoon's eyes, no potts sign. Neck: supple, trachea is midline, no swelling. Throat: Normal phonation. Eyes:, no erythema, no purulent discharge, no proptosis, no icterus. Heart: regular rate, regular rhythm, no significant murmur appreciated. Lungs: no apparent respiratory distress, Able to speak in full sentences. No wheezing, no rhonchi, no crackles. No stridors Clear to auscultation bilaterally. Abdomen: non tender to palpation, non distended, soft, no guarding, no rebound, + bowel sounds. Neuro: Awake, Alert, oriented to name, self, situation, follows commands GCS=15. Speech is normal. Skin: no petechia, no purpura, no cyanosis, non-pale, not jaundice. Lower extremities: --no - Pitting edema no deformity, no focal swelling, no calf TTP. Makes eye contact. moves all four extremities. Face: no apparent facial droop. Ambulating in the ED independently. ED COURSE: DISCLAIMER: This medical document was created using an electronic medical record system with voice recognition software and computerized dictation system. Although this document has been carefully reviewed, there might still be some phonetic and typographical errors. Occasional wrong-word or "sound-alike" substitutions may have occurred due to the inherent limitations of voice recognition software. These areas are purely typographical due to imperfections of the software programs and do not reflect any compromise in the patient's medical care. Please read the chart carefully and recognize, using context, where these substitutions have occurred. 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 Was a procedure done?: No X-Ray, Labs, Meds, VS Vital Signs Date Time Temp Pulse Resp B/P (MAP) Pulse Ox O2 Delivery O2 Flow Rate FiO2 05/02/25 22:08 97.7 79 22 161/63 (95) 100 97.7 05/02/25 22:08 79 22 100 Nasal Cannula 1.0 05/02/25 20:04 86 05/02/25 20:03 98.3 22 22 153/75 96 98.3 Lab Test 05/02/25 21:21 05/02/25 20:27 Range/Units Troponin I High Sensitivity 4 4 </=34 ng/L White Blood Count 6.2 4.4-10.8 10^3/uL Red Blood Count 3.16 L 4.0-5.20 10^6/uL Hemoglobin 9.4 L 12.2-16.2 g/dL Hematocrit 29.3 L 36.0-46.0 % Mean Corpuscular Volume 92.8 80.0-100.0 fL Mean Corpuscular Hemoglobin 29.7 28.0-32.0 pg Mean Corpuscular Hemoglobin Concent 32.0 32.0-36.0 g/dL Red Cell Distribution Width 16.2 H 11.8-14.3 % Platelet Count 254 140-450 10^3/uL Mean Platelet Volume 8.6 6.9-10.8 fL Neutrophils (%) (Auto) 80.0 37.0-80.0 % Lymphocytes (%) (Auto) 9.4 L 10.0-50.0 % Monocytes (%) (Auto) 8.0 0.0-12.0 % Eosinophils (%) (Auto) 2.1 0.0-7.0 % Basophils (%) (Auto) 0.5 0.0-2.0 % Neutrophils # (Auto) 5.0 1.6-8.6 10 ^3/uL Lymphocytes # (Auto) 0.6 0.4-5.4 10 ^3/uL Monocytes # (Auto) 0.5 0-1.3 10 ^3/uL Eosinophils # (Auto) 0.1 0-0.8 10 ^3/uL Basophils # (Auto) 0 0-0.2 10 ^3/uL Nucleated Red Blood Cells 0.0 % Sodium Level 148 H 136-145 mmol/L Potassium Level 4.6 3.5-5.1 mmol/L Chloride Level 112 H 98-107 mmol/L Carbon Dioxide Level 32 H 20-31 mmol/L Anion Gap 4 L 5-15 Blood Urea Nitrogen 38 H 9-23 mg/dL Creatinine 1.58 H 0.550-1.02 mg/dL Glomerular Filtration Rate Calc 31 >90 mL/min BUN/Creatinine Ratio 24.1 H 10.0-20.0 Serum Glucose 120 H 74-106 mg/dL Calcium Level 9.3 8.7-10.4 mg/dL Total Bilirubin 0.2 0.2-1.0 mg/dL Aspartate Amino Transferase (AST) 15 13-40 U/L Alanine Aminotransferase (ALT) 10 7-40 U/L Alkaline Phosphatase 75 46-116 U/L B-Type Natriuretic Peptide 95.80 0-100 pg/mL Total Protein 7.0 5.7-8.2 g/dL Albumin 4.0 3.2-4.8 g/dL Current Medications Medications (Trade) Dose Ordered Sig/Bhumika Route Start Time Stop Time Status Last Admin Methylprednisolone Sodium Succinate (Solu Medrol) 125 mg ONCE ONCE IV 05/02/25 20:30 05/02/25 20:31 DC 05/02/25 22:27 [place] [address] Ph: [phone] DIAGNOSTIC IMAGING Diagnostic Imaging Report : [id number] Signed PATIENT: SHIRA BRADSHAW ACCT: [id number] UNIT: [id number] : 1935 LOC: ER ROOM / BED: / AGE / SEX: 89 / F ADM STATUS: REG ER SERVICE 16 ORDERING PHYSICIAN: GUY ALFARO DO PROCEDURE(s): CXRP - CHEST PORTABLE REASON: sob ORDER NUMBER(s): [id number], ACCESSION NUMBER(s): [id number] CHEST RADIOGRAPH Indication: sob Technique: Single frontal view of the chest was obtained COMPARISON: XY CHEST XRAY 1 VIEW on DOS: 04/19/25, XY CHEST XRAY 1 VIEW on DOS: 04/17/25 FINDINGS: Lungs and pleural spaces are clear. Cardiac silhouette and leonor are within normal limits. Bones and soft tissues demonstrate no significant abnormality. IMPRESSION: No acute disease. ATED BY: MIKAEL MARX MD DICTATED DATE/TIME: 05/02/252232 SIGNED BY: MIKAEL MARX MD SIGNED DATE/TIME: 05/02/252232 CC: Time of 1ST Reevaluation: 20:17 Reevaluation 1ST: Unchanged Time of 2ND Reevaluation: 22:54 (The case was discussed with the treating provider from the sending facility (HPI, physical exam, labs and diagnostic tests that were available at the time of disposition, ED course, treatment plan) on the phone. They agreed to accept the patient to their facility Dr. Tho Massey. ) Patient Education/Counseling: Diagnosis, Treatment Family Education/Counseling: No Family Present SEPSIS Sepsis Screen Date sepsis recognized/suspect: May 02, 2025 Time Sepsis recognized/suspect: 2007 Recent Procedure: No On Antibiotic Therapy: No Respiratory Rate >20: No Heart Rate >90: Yes Temp<36 C (96.8 F) or >38.3 C: No SBP <90 or MAP <65 mmHG: No New Acute Mental Status Change: No Is the patient on CPAP, BIPAP,: No Physician Orders Electrocardigram (05/02/25 20:07) Contracts Representative (05/02/25 ) Chest Portable (05/02/25 20:17) Albuterol Medneb (Ventolin Medneb) (05/02/25 23:45) Ipratropium Medneb (Atrovent Medneb) (05/02/25 23:45) Vital Signs Date Time Temp Pulse Resp B/P (MAP) Pulse Ox O2 Delivery O2 Flow Rate FiO2 05/02/25 22:08 97.7 79 22 161/63 (95) 100 97.7 05/02/25 22:08 79 22 100 Nasal Cannula 1.0 05/02/25 20:04 86 05/02/25 20:03 98.3 22 22 153/75 96 98.3 Laboratory Tests Test 05/02/25 20:27 White Blood Count 6.2 10^3/uL (4.4-10.8) Medications Medications Dose Ordered Sig/Bhumika Route Start Time Stop Time Status Last Admin Dose Admin Methylprednisolone Sodium Succinate 125 mg ONCE ONCE IV 05/02/25 20:30 05/02/25 20:31 DC 05/02/25 22:27 Departure 1 Departure Time of Disposition: 22:54 Impression: Primary Impression: Shortness of breath Additional Impression: Anemia Disposition: 01 HOME / SELF CARE / HOMELESS Condition: Stable Additional Instructions: Additional instructions: Please read all instructions provided in this packet carefully. You MUST follow-up with your primary care/family doctor in 1 to 2 days. If you are unable to see your primary care/family doctor, please return to our emergency room for re-assessment and re-evaluation in 1 to 2 days. Return to the emergency room here in our facility or to the nearest ER [facility] if your symptoms change or worsen. CONSULTATIONS: you MUST Follow-up for consultation as soon as possible with: --pulmonology in 1-2 days. Please call for appointment. You MUST call the consultants office yourself to make an appointment. You may need to arrange that through your insurance and/or your primary/family doctor. If you are unable to see the technology methodology consultant in 1 to 2 days, you must return to our emergency room (or any other ER of your choice) for re-assessment and re- evaluation. Adequate fluid hydration. Although you have been discharged from the Emergency Department, this does not mean that you have a "clean bill of health". No definitive diagnosis for your symptoms has been made today. It is possible that you are in the process of developing a serious illness. This is why you must return to the ED without fail if any new or worsening symptoms develop. Below is a copy of your radiological report for follow up: [place] [address] Ph: [phone] DIAGNOSTIC IMAGING Diagnostic Imaging Report : [id number] Signed PATIENT: SHIRA BRADSHAW ACCT: [id number] UNIT: [id number] : 1935 LOC: ER ROOM / BED: / AGE / SEX: 89 / F ADM STATUS: REG ER SERVICE 16 ORDERING PHYSICIAN: GUY ALFARO DO PROCEDURE(s): CXRP - CHEST PORTABLE REASON: sob ORDER NUMBER(s): [id number], ACCESSION NUMBER(s): [id number] CHEST RADIOGRAPH Indication: sob Technique: Single frontal view of the chest was obtained COMPARISON: XY CHEST XRAY 1 VIEW on DOS: 04/19/25, XY CHEST XRAY 1 VIEW on DOS: 04/17/25 FINDINGS: Lungs and pleural spaces are clear. Cardiac silhouette and leonor are within normal limits. Bones and soft tissues demonstrate no significant abnormality. IMPRESSION: No acute disease. ATED BY: MIKAEL MARX MD DICTATED DATE/TIME: 05/02/252232 SIGNED BY: MIKAEL MARX MD SIGNED DATE/TIME: 05/02/252232 CC: Discharged With: Self Critical Care Note Critical Care Time?: Yes (35 min-critical care time only) I personally scribed for GUY ALFARO DO ([email or web address]) on 05/02/25 at 20:21. Electronically submitted by Henry Amaya ([facility]). I personally scribed for GUY ALFARO DO ([email or web address]) on 05/02/25 at 23:42. Electronically submitted by Henry Amaya ([email or web address]). I personally scribed for GUY ALFARO DO ([email or web address]) on 05/02/25 at 23:46. Electronically submitted by Henry Amaya (RCARRILLO). GUY ALFARO DO May 02, 2025 20:21
[2025-05-02 20:53] LABS: Alanine Aminotransferase 10 U/L (7-40); Albumin 4.0 g/dL (3.2-4.8); Alkaline Phosphatase 75 U/L (46-116); Anion Gap 4 (5-15); BUN/Creatinine Ratio 24.1 (10.0-20.0); Calcium 9.3 mg/dL (8.7-10.4); Potassium 4.6 mmol/L (3.5-5.1); Total Protein 7.0 g/dL (5.7-8.2)
[2025-05-02 20:57] LABS: Hematocrit 29.3 % (36.0-46.0); Hemoglobin 9.4 g/dL (12.2-16.2); Mean Corpuscular Hemoglobin 29.7 pg (28.0-32.0); Mean Corpuscular Volume 92.8 fL (80.0-100.0); Nucleated Red Blood Cells % 0.0 %
[2025-05-02 21:03] LABS: Bilirubin, Total 0.2 mg/dL (0.2-1.0); Blood Urea Nitrogen 38 mg/dL (9-23); Carbon Dioxide 32 mmol/L (20-31); Chloride 112 mmol/L (98-107); Glucose 120 mg/dL (74-106); Sodium 148 mmol/L (136-145)
[2025-05-02 22:08] VITALS: BP 161/63; PULSE 79; TEMP 97.7
[2025-05-02] MEDS: methylPREDNISolone SOD SUCC 125 MG/2 ML VL IV ONE (22:27)
--- NOTE | 2025-05-02 22:35 | DVH ---
CHEST RADIOGRAPH Indication: sob Technique: Single frontal view of the chest was obtained COMPARISON: XY CHEST XRAY 1 VIEW on DOS: 04/19/25, XY CHEST XRAY 1 VIEW on DOS: 04/17/25 FINDINGS: Lungs and pleural spaces are clear. Cardiac silhouette and leonor are within normal limits. Bones and soft tissues demonstrate no significant abnormality. IMPRESSION: No acute disease.
[2025-05-03] MEDS: ALBUTEROL SULF 2.5 MG/0.5ML(0.5%) NEB SOLN NEB ONE (00:01)
[2025-05-03] MEDS: IPRATROPIUM BROM 0.5 MG/2.5ML INH SOL NEB ONE (00:01)
[2025-05-03 00:04] VITALS: RESP 20; O2SAT 100
--- NOTE | 2025-05-06 11:58 | ECG ---
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
== END 2025-05-03 01:01 | disposition home or self-care (01) ==
LOC: EDBD 19:56 → ER 19:56
DX: D64.9 Anemia, unspecified (principal); R06.02 Shortness of breath; J44.9 Chronic obstructive pulmonary disease, unspecified; F17.210 Nicotine dependence, cigarettes, uncomplicated; I12.9 Hypertensive chronic kidney disease with stage 1 through stage 4 chronic kidney disease, or unspecified chronic kidney disease; N18.9 Chronic kidney disease, unspecified
CPT/HCPCS: 36415; 71045; 80053; 83880; 84484; 85025; 93005; 94640; 96374; 99285; J2919